=== PATIENT | female | born 1990 | race Two or more races ===

== ENCOUNTER 2024-10-18 15:55 | Emergency (ER) | payer OTHER ==
[~2024-10-18] VITALS: Ht 160 cm; Wt 76.2 kg
[2024-10-18] MEDS ORDERED: LIDOCAINE HCL 1% 10ML VIAL ONE (18:06)
[2024-10-18] MEDS ORDERED: TETANUS DIPHTHERIA TOX. ADSOR 5 ML VIAL IM ONE (18:43)
[2024-10-18] MEDS ORDERED: LIDOCAINE HCL 1% 10ML VIAL PERCUT ONE (18:45)
[2024-10-18] MEDS ORDERED: TETANUS & DIPHTHERIA TOX,ADULT 0.5 ML VIAL IM ONE (18:45)
== END 2024-10-18 20:00 | disposition home or self-care (01) ==
LOC: ER 15:58
DX: S61.012A Laceration without foreign body of left thumb without damage to nail, initial encounter (principal); W26.0XXA Contact with knife, initial encounter; Y93.89 Activity, other specified; Y92.89 Other specified places as the place of occurrence of the external cause; Y99.9 Unspecified external cause status

== ENCOUNTER → 2024-10-28 | Emergency (ER) | payer OTHER ==
[~2024-10-28] VITALS: Ht 160 cm; Wt 76.2 kg
== END | disposition home or self-care (01) ==
LOC: ER 20:00
DX: Z48.02 Encounter for removal of sutures (principal)